=== PATIENT | male | born 1960 | race Caucasian/White ===

== ENCOUNTER 2021-03-15 20:49 | Emergency (ER) | payer MEDICAID ==
--- NOTE | 2021-03-15 21:35 | EDM.PDOC ---
ED [facility] GENERAL MEDICAL PROBLEM - General Chief Complaint: Respiratory Problem Stated Complaint: COUGH, HEADACHE Time Seen by Provider: 03/15/21 20:49 Source of Information: Reports: Patient History Limitations: Reports: No Limitations - History of Present Illness INITIAL COMMENTS - FREE TEXT/NARRATIVE: Patient comes in to the Emergency department with cough, fever, and headache. Patient has had symptoms approximately for 2 days. Patient states that he was trying to get into his primary care provider on Wednesday however she could not get her spouse an appointment. They present to the emergency department tonight with ongoing symptoms. He did have a fever earlier today however he states he has not had a fever tonight. Has not taken any Tylenol or ibuprofen. Does have a history of COPD. He also has a close contact to [employer]. The person he is with tested +9 days ago. Onset: Gradual Quality: Reports: Other Severity: Moderate Improves with: Reports: Rest Worsens with: Reports: Movement Context: Reports: Other Associated Symptoms: Reports: Cough, cough w sputum, Loss of Appetite, Malaise, Shortness of Breath - Related Data Allergies Allergy/AdvReac Type Severity Reaction Status Date / Time No Known Allergies Allergy Verified 07/20/14 12:28 Past Medical History - Past Health History Medical/Surgical History: Denies Medical/Surgical History ED ROS GENERAL - Review of Systems Review Of Systems: Comprehensive ROS is negative, except as noted in HPI. Constitutional: Reports: Chills, Malaise, Weakness, Fatigue, Decreased Appetite HEENT: Reports: No Symptoms Respiratory: Reports: Shortness of Breath, Cough Cardiovascular: Reports: No Symptoms Endocrine: Reports: No Symptoms GI/Abdominal: Reports: No Symptoms : Reports: No Symptoms Musculoskeletal: Reports: No Symptoms Skin: Reports: No Symptoms Neurological: Reports: No Symptoms Psychiatric: Reports: No Symptoms Hematologic/Lymphatic: Reports: No Symptoms Immunologic: Reports: No Symptoms ED EXAM, GENERAL - Physical Exam Exam: See Below Exam Limited By: No Limitations General Appearance: Alert, WD/WN, No Apparent Distress Head: Atraumatic, Normocephalic Neck: Normal Inspection, Supple, Non-Tender, Full Range of Motion Respiratory/Chest: No Respiratory Distress, Lungs Clear, Normal Breath Sounds, No Accessory Muscle Use, Chest Non-Tender Cardiovascular: Normal Peripheral Pulses, Regular Rate, Rhythm, Tachycardia GI/Abdominal: Normal Bowel Sounds, Soft, Non-Tender Back Exam: Normal Inspection, Full Range of Motion Extremities: Normal Inspection, Normal Range of Motion, Non-Tender, No Pedal Edema, Normal Capillary Refill Neurological: Alert, Oriented, Normal Cognition Psychiatric: Normal Affect, Normal Mood Skin Exam: Warm, Dry, Intact Course - Orders/Labs/Meds Labs: Laboratory Tests 03/15/21 Range/Units 21:15 Influenza Type A RNA Negative (NEGATIVE) RSV RNA (INAAT) Negative (NEGATIVE) Influenza Type B RNA Negative (NEGATIVE) SARS-CoV-2 RNA (JOSE) Positive H (NEGATIVE) Departure - Departure Time of Disposition: 22:00 Disposition: Home, Self-Care 01 Condition: Fair Clinical Impression: COVID-19 - Discharge Information *PRESCRIPTION DRUG MONITORING PROGRAM REVIEWED*: Not Applicable *COPY OF PRESCRIPTION DRUG MONITORING REPORT IN PATIENT PHANI: Not Applicable Instructions: Frequently Asked Questions About COVID-19 Vaccination - [facility] (11/19/2020), Things to Know about the COVID-19 Pandemic - [facility] (08/21/2020) Forms: ED Department Discharge Additional Instructions: 1. rest 2. increase your water intake 3. Continue all at home medications 4. Activity and diet as tolerated 5. Can take over the counter Tylenol for any pain or discomfort 6. Follow up with PCP if symptoms continue, return, or progress 7. Call with any questions or concerns - Assessment/Plan Assessment:: 1. Covid-19 positive Plan: 1. Rapid covid-19 + 2. Patient and nursing staff was updated regarding the plan of care 3. Education provided the patient regarding activity, diet, rest, [id number] medication modalities, and follow-up care was provided 4. Patient and family are agreeable to the above plan of care 5. All questions and concerns were addressed with the patient and family prior to discharge 6. To follow-up with his PCP if symptoms continue or to progress to look at IV infusion if necessary.
[2021-03-15 21:56] LABS: CORONAVIRUS COVID-19 NAA POSITIVE (NEGATIVE); RESPIRATORY SYNCYTIAL VIR NAA NEGATIVE (NEGATIVE)
[2021-03-15] MEDS ORDERED: Acetaminophen 325 MG Tab PO ONE (22:06)
[2021-03-16 01:06] VITALS: BP 88/61; PULSE 99
== END 2021-03-15 22:15 | disposition home or self-care (01) ==
LOC: VM.ED 20:49
DX: U07.1 COVID-19 (principal)
CPT/HCPCS: 0241U; 99283

== ENCOUNTER 2023-12-31 16:50 | Emergency (ER) | payer MEDICAID, MEDICARE ==
[2023-12-31] MEDS ORDERED: Proparacaine 0.5% Ophth Soln 15 ML Bottle EYELF PRN (16:59)
[2023-12-31] MEDS ORDERED: Fluorescein 1 MG Ophth Strip EYERT ONE (17:01)
[2023-12-31] MEDS: Take Home: Cyclobenzaprine 10 MG Tab, 4 Tab Pack PO ONE (17:49)
[2023-12-31 17:55] VITALS: BP 144/61; PULSE 89
== END 2023-12-31 17:50 | disposition home or self-care (01) ==
LOC: VM.ED 16:50
DX: M62.838 Other muscle spasm (principal); Z86.16 Personal history of COVID-19
CPT/HCPCS: 99283; A9270